=== PATIENT | male | born 1955 | race Caucasian/White ===

== ENCOUNTER 2017-05-14 12:41 | Emergency (ER) | payer OTHER ==
[2017-05-14 13:20] LABS: BASOPHILS % (AUTO) 0.3 %; EOSINOPHILS # (AUTO) 0.1 10^3/uL (0.0-0.7); EOSINOPHILS % (AUTO) 0.6 %; HCT - HEMATOCRIT 44.9 % (42.0-52.0); HGB - HEMOGLOBIN 15.2 g/dL (14.0-18.0); LYMPHOCYTES # (AUTO) 2.1 10^3/uL (1.5-3.5); MEAN CORPUSCULAR HEMOGLOBIN 30.1 pg (27.0-31.0); MEAN CORPUSCULAR HGB CONC 33.8 g/dL (32.0-36.0); MEAN PLATELET VOLUME 8.2 fL (7.4-11.4); MONOCYTES # (AUTO) 0.7 10^3/uL (0.0-1.0); MONOCYTES % (AUTO) 5.9 %; NEUTROPHILS # (AUTO) 9.6 10^3/uL (1.5-6.6); NEUTROPHILS % (AUTO) 76.2 %; RED BLOOD COUNT 5.04 10^6/uL (4.70-6.10); RED CELL DISTRIBUTION WIDTH 13.3 % (12.0-15.0); UNCORRECTED WHITE BLOOD COUNT 12.5 x10^3/uL; WHITE BLOOD COUNT 12.5 x10^3/uL (4.8-10.8)
[2017-05-14 13:29] LABS: ALBUMIN/GLOBULIN RATIO 1.6 (1.0-2.2); BILIRUBIN,TOTAL 2.1 mg/dL (0.2-1.0); CALCIUM 9.9 mg/dL (8.5-10.3); CREATININE 1.2 mg/dL (0.6-1.2); TOTAL PROTEIN 7.2 g/dL (6.7-8.2)
--- NOTE | 2017-05-14 13:40 | XRAY Preliminary Report ---
Exam: XR Chest 2 View PA/LAT IMPRESSION: Suspect chronic lung disease. [facility] SITE ID: [id number]
--- NOTE | 2017-05-14 13:45 | ED Physician Documentation ---
PD HPI CHEST PAIN - Stated complaint Stated Complaint: CHEST PAIN,CARRERA,NAUSEA - Chief complaint Chief Complaint: Cardiac - History obtained from History obtained from: Patient, Family - History of Present Illness Timing - onset: Enter time (1500), Yesterday Timing - onset during: Exertion Timing - duration: Hours (2) Timing - details: Gradual onset, Now resolved, Waxing and waning Quality: Pressure Location: Substernal Radiation: Neck Improved by: Rest Associated symptoms: Nausea. No: Shortness of air, Diaphoresis, Vomiting, Feeling faint / dizzy, General Weakness, Palpitations, Cough Similar symptoms before: Has not had sx before Recently seen: Not recently seen - Additional information Additional information: 61-year-old male with a history of reflux, previous hypercholesterolemia and a positive family history of coronary disease is a non-smoker and yesterday while he was using his weed [place] in his yard he developed some subtle substernal chest pain that radiated into his neck. He felt a little bit nauseous with this he did not develop diaphoresis or dizziness he did not develop dyspnea. The pain lasted approximately 2 hours in bouts of about 15 minutes. He relates that he felt the pain was something he had never experienced before and he became somewhat concerned. He had return of some of this pain today and is come to the emergency department he is pain-free now. He has not noted any exertional component to symptoms. Review of Systems Constitutional: denies: Fever, Chills, Myalgias, Fatigue, Sweats Eyes: denies: Decreased vision Ears: denies: Ear pain Nose: denies: Rhinorrhea / runny nose, Congestion Throat: reports: Sore throat Cardiac: reports: Chest pain / pressure. denies: Palpitations, Pedal edema, Calf pain Respiratory: denies: Dyspnea, Cough, Wheezing GI: reports: Nausea. denies: Abdominal Pain, Vomiting : denies: Dysuria, Frequency Skin: denies: Rash Musculoskeletal: reports: Neck pain. denies: Back pain, Extremity pain, Extremity swelling PD PAST MEDICAL HISTORY - Past Medical History Past Medical History: Yes Cardiovascular: None Respiratory: None Neuro: None Endocrine/Autoimmune: None GI: GERD : None HEENT: None Psych: None Musculoskeletal: None Derm: None - Past Surgical History Past Surgical History: No - Present Medications Home Medications: Ambulatory Orders Medication Instructions Recorded Confirmed Pantoprazole Sodium [Protonix] 20 mg PO DAILY 05/14/17 05/14/17 - Allergies Allergies/Adverse Reactions: Allergies Allergy/AdvReac Type Severity Reaction Status Date / Time No Known Drug Allergies Allergy Verified 05/14/17 12:47 - Social History Does the pt smoke?: No Smoking Status: Never smoker Does the pt drink ETOH?: Yes Does the pt have substance abuse?: No - Immunizations Immunizations are current?: No Immunizations: TDAP >10years/unknown - POLST Patient has POLST: No PD ED PE NORMAL - Vitals Vital signs reviewed: Yes (Normal) - General General: Alert and oriented X 3, No acute distress, Well developed/nourished - HEENT HEENT: Atraumatic, PERRL, EOMI, Moist mucous membranes, Other (Mild inflammation to both TMs along the umbo only) - Neck Neck: Supple, no meningeal sign, No bony TTP - Cardiac Cardiac: RRR, No murmur - Respiratory Respiratory: No respiratory distress, Clear bilaterally, Other (No pain to palpation of the chest wall anterior.) - Abdomen Abdomen: Soft, Non tender - Back Back: No CVA TTP, No spinal TTP - Derm Derm: Normal color, Warm and dry, No rash - Extremities Extremities: No deformity, No edema - Neuro Neuro: Alert and oriented X 3, primary grade teacher 2-12 intact, No motor deficit, No sensory deficit, Normal speech - Psych Psych: Normal mood, Normal affect Results - Vitals Vitals: Vital Signs - 24 hr 05/14/17 05/14/17 05/14/17 12:44 13:37 13:51 Temperature 36.7 C Heart Rate 68 87 Respiratory 16 17 Rate Blood Pressure 124/62 117/71 O2 Saturation 99 97 Oxygen O2 Source Room air - EKG (time done) 1245 Rate: Rate (enter#) (77) Rhythm: NSR Ischemia: ST depression (anterior and lateral ), Q waves (inferior) Compare to prior EKG: Old EKG unavailable Computer interpretation: Agree with computer - Labs Labs: Laboratory Tests 05/14/17 05/14/17 05/14/17 12:55 12:55 12:55 WBC 12.5 H RBC 5.04 Hgb 15.2 Hct 44.9 MCV 89.0 MCH 30.1 MCHC 33.8 RDW 13.3 Plt Count 226 MPV 8.2 Neut # 9.6 H Lymph # 2.1 [place] # 0.7 Eos # 0.1 Baso # 0.0 Absolute Nucleated RBC 0.00 Nucleated RBCs 0.0 Sodium 140 Potassium 4.0 Chloride 105 Carbon Dioxide 28 Anion Gap 7.0 BUN 21 H Creatinine 1.2 Estimated GFR (MDRD) 62 L Glucose 109 H Calcium 9.9 Total Bilirubin 2.1 H AST 90 H ALT 66 H Alkaline Phosphatase 52 Troponin I 4.00 H* Total Protein 7.2 Albumin 4.4 Globulin 2.8 Albumin/Globulin Ratio 1.6 Lipase 22 - Rads (name of study) 2 view chest Radiology: Prelim report reviewed (Impression: Suspect chronic lung disease.), EMP read indepedently, See rad report PD MEDICAL DECISION MAKING - ED course Complexity details: reviewed old records, reviewed results, re-evaluated patient , considered differential, d/w patient, d/w family ED course: 61-year-old male with a history of reflux and no other history in our ED with us , has developed atypical chest pain and electric cardiogram today is suspicious for infarction without ST elevation and today his troponin is elevated at 4.0 he is asymptomatic at the time of evaluation. Here in the emergency department he is administered aspirin and heparin and we will transfer him to [facility]. Dr. Madsen is scrubbed into a case and Dr. Calderon is accepting. Departure - Departure Disposition: 02 Transfer Acute Care Hosp Clinical Impression: Myocardial infarction Qualifiers: Myocardial infarction ST status: non-ST elevation myocardial infarction Qualified Code(s): I21.4 - Non-ST elevation (NSTEMI) myocardial infarction Condition: Stable
[2017-05-14] MEDS ORDERED: HEPARIN 5,000 UNIT/ML VIAL IVP ONE (13:52)
[2017-05-14] MEDS ORDERED: ASPIRIN CHEW 81 MG TABLET PO STA (13:52)
--- NOTE | 2017-05-14 13:53 | XRAY Report ---
EXAM: CHEST RADIOGRAPHY EXAM DATE: 05/14/2017 01:27 PM. CLINICAL HISTORY: Central chest pain since yesterday. COMPARISON: None. TECHNIQUE: 2 views. FINDINGS: Lungs/Pleura: Small amount of smooth pleural thickening left lateral chest wall. Overexpanded lungs. No consolidation, effusion, vascular congestion nor pneumothorax. Mediastinum: Heart and mediastinal contours are unremarkable. Other: None. IMPRESSION: Suspect chronic lung disease. [facility] Referring Provider Line: [phone] SITE ID: [id number]
[2017-05-14] MEDS ORDERED: ASPIRIN CHEW 81 MG TABLET ONE (13:56)
[2017-05-14] MEDS ORDERED: HEPARIN 5,000 UNIT/ML VIAL ONE (14:00)
[2017-05-14] MEDS ORDERED: SODIUM CHLORIDE FLUSH 0.9% 10 ML SYRINGE IVP ONE (14:04)
[2017-05-14] MEDS ORDERED: HEPARIN 25,000 UNITS/500 ML 500 ML IV STA (14:27)
[2017-05-14] MEDS ORDERED: HEPARIN 25,000 UNITS/500 ML 500 ML IV ONE (14:32)
[2017-05-14 15:55] VITALS: BP 119/79
== END 2017-05-14 17:08 | disposition short-term general hospital (02) ==
LOC: ED 12:41
DX: I21.4 Non-ST elevation (NSTEMI) myocardial infarction (principal); R94.31 Abnormal electrocardiogram [ECG] [EKG]; K21.9 Gastro-esophageal reflux disease without esophagitis; Z82.49 Family history of ischemic heart disease and other diseases of the circulatory system
CPT/HCPCS: 36415; 71020; 80053; 83690; 84484; 85025; 93005; 96374; 99284; 99285; A9270

== ENCOUNTER 2017-05-14 17:04 | Outpatient (CLI) | payer OTHER | END 2017-05-14 17:05 | disposition short-term general hospital (02) | LOC: EMS 17:04 | PROVIDERS: ATTEND Surgery | DX: I21.4 Non-ST elevation (NSTEMI) myocardial infarction (principal) | CPT/HCPCS: A0425; A0426 ==

== ENCOUNTER 2017-05-30 08:38 | Outpatient (CLI) | payer OTHER ==
[2017-05-30 09:52] LABS: CHOLESTEROL 111 mg/dL; HDL CHOLESTEROL 37 mg/dL; LDL/HDL RATIO 1.5 (<3.6); TRIGLYCERIDES 83 mg/dL; VLDL CHOLESTEROL 17 mg/dL
== END 2017-05-30 08:39 | disposition home or self-care (01) ==
LOC: LAB 08:38
DX: I21.4 Non-ST elevation (NSTEMI) myocardial infarction (principal); E80.4 Gilbert syndrome
CPT/HCPCS: 36415; 80061

== ENCOUNTER 2017-09-02 18:33 | Emergency (ER) | payer OTHER ==
[2017-09-02 19:18] LABS: BASOPHILS % (AUTO) 0.6 %; EOSINOPHILS # (AUTO) 0.3 10^3/uL (0.0-0.7); EOSINOPHILS % (AUTO) 3.4 %; HCT - HEMATOCRIT 43.6 % (42.0-52.0); HGB - HEMOGLOBIN 14.5 g/dL (14.0-18.0); LYMPHOCYTES # (AUTO) 1.6 10^3/uL (1.5-3.5); LYMPHOCYTES % (AUTO) 20.3 %; MEAN CORPUSCULAR HEMOGLOBIN 29.6 pg (27.0-31.0); MEAN CORPUSCULAR HGB CONC 33.3 g/dL (32.0-36.0); MEAN CORPUSCULAR VOLUME 88.7 fL (80.0-94.0); MEAN PLATELET VOLUME 7.4 fL (7.4-11.4); MONOCYTES # (AUTO) 0.6 10^3/uL (0.0-1.0); MONOCYTES % (AUTO) 7.3 %; NEUTROPHILS # (AUTO) 5.5 10^3/uL (1.5-6.6); NEUTROPHILS % (AUTO) 68.4 %; RED BLOOD COUNT 4.92 10^6/uL (4.70-6.10); RED CELL DISTRIBUTION WIDTH 13.4 % (12.0-15.0)
[2017-09-02 19:30] LABS: ALBUMIN/GLOBULIN RATIO 1.5 (1.0-2.2); BILIRUBIN,TOTAL 1.9 mg/dL (0.2-1.0); CALCIUM 9.9 mg/dL (8.5-10.3); CREATININE 0.9 mg/dL (0.6-1.2); POTASSIUM 3.9 mmol/L (3.5-5.0)
--- NOTE | 2017-09-02 19:43 | ED Physician Documentation ---
PD HPI CHEST PAIN - Stated complaint Stated Complaint: K LEVEL HIGH - Chief complaint Chief Complaint: General - History obtained from History obtained from: Patient - History of Present Illness Timing - onset: Today (He had regular outpatient labs done through his [facility] yesterday with result today showing elevated potasium of 6.6. The office called him to go to ED to have level rechecked.) Timing - details: Other (he is feeling okay without weakness, cramping, numbness.) Review of Systems GI: denies: Nausea, Vomiting, Diarrhea Neurologic: denies: Focal weakness, Numbness, Near syncope, Altered mental status PD PAST MEDICAL HISTORY - Past Medical History Cardiovascular: None Respiratory: None Neuro: None Endocrine/Autoimmune: None GI: GERD : None HEENT: None Psych: None Musculoskeletal: None Derm: None - Past Surgical History Past Surgical History: No - Present Medications Home Medications: Ambulatory Orders Medication Instructions Recorded Confirmed Pantoprazole Sodium [Protonix] 20 mg PO DAILY 05/14/17 05/14/17 - Allergies Allergies/Adverse Reactions: Allergies Allergy/AdvReac Type Severity Reaction Status Date / Time No Known Drug Allergies Allergy Verified 09/02/17 18:48 - Social History Does the pt smoke?: No Smoking Status: Never smoker Does the pt drink ETOH?: Yes Does the pt have substance abuse?: No - Immunizations Immunizations are current?: No Immunizations: TDAP >10years/unknown - POLST Patient has POLST: No PD ED PE NORMAL - Vitals Vital signs reviewed: Yes - General General: Alert and oriented X 3, No acute distress, Well developed/nourished - Cardiac Cardiac: RRR, No murmur - Neuro Neuro: Alert and oriented X 3, No motor deficit, Normal speech Results - Vitals Vitals: Vital Signs - 24 hr 09/02/17 09/02/17 18:45 20:32 Temperature 36.4 C L 36.7 C Heart Rate 74 79 Respiratory 16 17 Rate Blood Pressure 122/69 143/71 H O2 Saturation 100 99 Oxygen O2 Source Room air - Labs Labs: Laboratory Tests 09/02/17 09/02/17 19:10 19:10 WBC 8.0 RBC 4.92 Hgb 14.5 Hct 43.6 MCV 88.7 MCH 29.6 MCHC 33.3 RDW 13.4 Plt Count 213 MPV 7.4 Neut # 5.5 Lymph # 1.6 [place] # 0.6 Eos # 0.3 Baso # 0.0 Absolute Nucleated RBC 0.00 Nucleated RBC % 0.0 Sodium 140 Potassium 3.9 Chloride 101 Carbon Dioxide 26 Anion Gap 13.0 BUN 21 H Creatinine 0.9 Estimated GFR (MDRD) 86 L Glucose 95 Calcium 9.9 Total Bilirubin 1.9 H AST 37 ALT 44 Alkaline Phosphatase 70 Total Protein 7.0 Albumin 4.2 Globulin 2.8 Albumin/Globulin Ratio 1.5 Lipase 27 PD MEDICAL DECISION MAKING - ED course Complexity details: considered differential (His potassium level is normal here ; presume had hemolyzed sample from outpatient. His renal function is normal too , which reinforces the idea of lab error reading from earlier. ), d/w patient Departure - Departure Disposition: 01 Home, Self Care Clinical Impression: Serum potassium elevated Condition: Stable Record reviewed to determine appropriate education?: Yes Follow-Up: MARCY SANDERS MD [Primary Care Provider] - Comments: Your repeat potassium level and kidney function are normal here. Presume was a false reading from the lab this morning. Continue usual medications and activities. Remain adequately hydrated. Follow-up with your primary care and miner assistant as needed. Call to update the office tomorrow about the repeated blood test. Discharge Date/Time: 09/02/17 20:20
[2017-09-02 20:35] VITALS: BP 143/71
== END 2017-09-02 20:20 | disposition home or self-care (01) ==
LOC: ED 18:33
DX: E87.5 Hyperkalemia (principal); R94.31 Abnormal electrocardiogram [ECG] [EKG]
CPT/HCPCS: 36415; 80053; 83690; 85025; 93005; 99283

== ENCOUNTER 2019-11-18 14:21 | Outpatient (CLI) | payer OTHER | END 2019-11-18 14:22 | disposition home or self-care (01) | LOC: LAB 14:21 | PROVIDERS: ATTEND Family Medicine | DX: E87.5 Hyperkalemia (principal) | CPT/HCPCS: 36415; 84132 ==

== ENCOUNTER 2019-12-21 07:33 | Observation (INO) | payer OTHER ==
[2019-12-21 08:09] LABS: BASOPHILS # (AUTO) 0.1 10^3/uL (0.0-0.1); BASOPHILS % (AUTO) 0.5 %; EOSINOPHILS # (AUTO) 0.1 10^3/uL (0.0-0.7); EOSINOPHILS % (AUTO) 0.9 %; HGB - HEMOGLOBIN 12.2 g/dL (14.0-18.0); LYMPHOCYTES # (AUTO) 1.6 10^3/uL (1.5-3.5); LYMPHOCYTES % (AUTO) 14.4 %; MEAN CORPUSCULAR HEMOGLOBIN 30.7 pg (27.0-31.0); MEAN CORPUSCULAR HGB CONC 33.5 g/dL (32.0-36.0); MEAN CORPUSCULAR VOLUME 91.7 fL (80.0-94.0); MEAN PLATELET VOLUME 9.4 fL (7.4-11.4); MONOCYTES # (AUTO) 0.7 10^3/uL (0.0-1.0); MONOCYTES % (AUTO) 6.3 %; NEUTROPHILS # (AUTO) 8.5 10^3/uL (1.5-6.6); NEUTROPHILS % (AUTO) 77.5 %; PLT - PLATELET COUNT 247 10^3/uL (130-450); RED BLOOD COUNT 3.97 10^6/uL (4.70-6.10); RED CELL DISTRIBUTION WIDTH 12.5 % (12.0-15.0); WHITE BLOOD COUNT 10.9 x10^3/uL (4.8-10.8)
[2019-12-21 08:20] LABS: ALBUMIN/GLOBULIN RATIO 1.7 (1.0-2.2); BILIRUBIN,TOTAL 2.2 mg/dL (0.2-1.0); CALCIUM 8.9 mg/dL (8.5-10.3); CREATININE 1.1 mg/dL (0.6-1.2); TOTAL PROTEIN 6.3 g/dL (6.7-8.2)
--- NOTE | 2019-12-21 08:23 | ED Physician Documentation ---
History of Present Illness - Stated complaint Stated Complaint: LIGHTHEADED - Chief complaint Chief Complaint: Cardiac - History obtained from History obtained from: Patient - History of Present Illness Timing: Yesterday - Additonal information Additional information: 64-year-old male with a history of lipoprotein a and coronary disease has [address] and last night he had to go outside to [place] after a dog and when he picked up the dog and carried him home he was much more fatigued than he would expect. He subsequently was able to go to bed he did not have any pain in his chest he did not have any further shortness of breath and this morning when he awoke he felt dizzy and lightheaded. He also notes that he has had some dark tarry stool. Review of Systems Constitutional: reports: Fatigue. denies: Fever, Chills, Myalgias Eyes: denies: Decreased vision Ears: denies: Ear pain Nose: denies: Rhinorrhea / runny nose, Congestion Throat: denies: Sore throat Cardiac: denies: Chest pain / pressure, Palpitations, Pedal edema, Calf pain Respiratory: reports: Dyspnea. denies: Cough, Wheezing GI: reports: Bloody / black stool. denies: Abdominal Pain, Nausea, Vomiting : denies: Dysuria, Frequency Skin: reports: Rash (To the calves improved with steroid and ketoconazole) Musculoskeletal: denies: Neck pain, Back pain, Extremity pain PD PAST MEDICAL HISTORY - Past Medical History Cardiovascular: None Respiratory: None Endocrine/Autoimmune: None GI: GERD : None HEENT: None Psych: None Musculoskeletal: None Derm: None - Past Surgical History Past Surgical History: No - Present Medications Home Medications: Ambulatory Orders Medication Instructions Recorded Confirmed Aspirin 81 mg PO DAILY 12/21/19 12/21/19 Atorvastatin Calcium 40 mg PO QPM 12/21/19 12/21/19 Clopidogrel Bisulfate [Clopidogrel] 75 mg PO DAILY 12/21/19 12/21/19 Metoprolol Succinate [Toprol Xl] 25 mg PO DAILY 12/21/19 12/21/19 Mupirocin 2% Oint [Bactroban 2% 1 applic TOP BID 12/21/19 12/21/19 Oint] lisinopriL [Lisinopril] 2.5 mg PO DAILY 12/21/19 12/21/19 - Allergies Allergies/Adverse Reactions: Allergies Allergy/AdvReac Type Severity Reaction Status Date / Time No Known Drug Allergies Allergy Verified 12/21/19 07:39 - Social History Does the pt smoke?: No Smoking Status: Never smoker Does the pt drink ETOH?: Yes Does the pt have substance abuse?: No - Immunizations Immunizations are current?: No Immunizations: TDAP >10years/unknown - POLST Patient has POLST: No PD ED PE NORMAL - Vitals Vital signs reviewed: Yes (Normal) - General General: Alert and oriented X 3, No acute distress, Well developed/nourished - HEENT HEENT: Atraumatic, PERRL, EOMI - Neck Neck: Supple, no meningeal sign, No bony TTP - Cardiac Cardiac: RRR, No murmur - Respiratory Respiratory: No respiratory distress, Clear bilaterally - Abdomen Abdomen: Soft, Non tender - Male Male : Other (Normal sphincter tone there are external hemorrhoidal tags there is jet black stool present that is guaiac positive) - Back Back: No CVA TTP, No spinal TTP - Derm Derm: Normal color, Warm and dry, No rash - Extremities Extremities: No deformity, No edema, Other (There is a petechial rash to the distal anterior calf right where the patient's left leg rest when he crosses his legs.) - Neuro Neuro: Alert and oriented X 3, outpatient psychiatrist 2-12 intact, No motor deficit, No sensory deficit, Normal speech Eye Opening: Spontaneous Motor: Obeys Commands Verbal: Oriented GCS Score: 15 - Psych Psych: Normal mood, Normal affect Results - Vitals Vitals: Vital Signs - 24 hr 12/21/19 12/21/19 12/21/19 07:39 08:15 09:26 Temperature 36.6 C Heart Rate 98 97 95 Respiratory 18 16 15 Rate Blood Pressure 100/61 107/71 105/70 O2 Saturation 100 99 100 Oxygen O2 Source Room air - EKG (time done) 0809 Rate: Rate (enter#) (110) Rhythm: Sinus tachycardia Ischemia: Q waves Compare to prior EKG: Unchanged from prior EKG (SPT 09-02-2017 no significant changes) Computer interpretation: Agree with computer - Labs Labs: Laboratory Tests 12/21/19 12/21/19 12/21/19 07:45 07:55 07:55 WBC 10.9 H RBC 3.97 L Hgb 12.2 L Hct 36.4 L MCV 91.7 MCH 30.7 MCHC 33.5 RDW 12.5 Plt Count 247 MPV 9.4 Neut # (Auto) 8.5 H Lymph # (Auto) 1.6 [place] # (Auto) 0.7 Eos # (Auto) 0.1 Baso # (Auto) 0.1 Absolute Nucleated RBC 0.00 Nucleated RBC % 0.0 PT 12.6 INR 1.1 APTT 24.2 L Sodium 139 Potassium 4.3 Chloride 108 Carbon Dioxide 24 Anion Gap 7.0 BUN 46 H Creatinine 1.1 Estimated GFR (MDRD) 68 L Glucose 125 H Calcium 8.9 Total Bilirubin 2.2 H AST 20 ALT 26 Alkaline Phosphatase 50 Troponin I High Sens Total Protein 6.3 L Albumin 4.0 Globulin 2.3 Albumin/Globulin Ratio 1.7 Lipase 28 Stl Occult Blood (IFOB) Blood Type Blood Type Recheck Antibody Screen 12/21/19 12/21/19 12/21/19 07:55 07:55 08:20 WBC RBC Hgb Hct MCV MCH MCHC RDW Plt Count MPV Neut # (Auto) Lymph # (Auto) [place] # (Auto) Eos # (Auto) Baso # (Auto) Absolute Nucleated RBC Nucleated RBC % PT INR APTT Sodium Potassium Chloride Carbon Dioxide Anion Gap BUN Creatinine Estimated GFR (MDRD) Glucose Calcium Total Bilirubin AST ALT Alkaline Phosphatase Troponin I High Sens 7.8 Total Protein Albumin Globulin Albumin/Globulin Ratio Lipase Stl Occult Blood (IFOB) POSITIVE A Blood Type Blood Type Recheck A POSITIVE Antibody Screen 12/21/19 08:27 WBC RBC Hgb Hct MCV MCH MCHC RDW Plt Count MPV Neut # (Auto) Lymph # (Auto) [place] # (Auto) Eos # (Auto) Baso # (Auto) Absolute Nucleated RBC Nucleated RBC % PT INR APTT Sodium Potassium Chloride Carbon Dioxide Anion Gap BUN Creatinine Estimated GFR (MDRD) Glucose Calcium Total Bilirubin AST ALT Alkaline Phosphatase Troponin I High Sens Total Protein Albumin Globulin Albumin/Globulin Ratio Lipase Stl Occult Blood (IFOB) Blood Type A POSITIVE Blood Type Recheck Antibody Screen NEGATIVE - Rads (name of study) chest Radiology: Prelim report reviewed (Impression: Normal single view chest.), EMP read indepedently, See rad report PD MEDICAL DECISION MAKING - ED course Complexity details: reviewed old records, reviewed results, re-evaluated patient, considered differential, d/w patient ED course: 64-year-old male with a history of coronary artery disease, lipoprotein A, felt lightheaded and dizzy since yesterday evening, reminiscent of his symptoms of [place]. He presents to the emergency department today when his symptoms persisted this morning. His electrocardiogram is unchanged from prior, his troponin is negative. His stool is dark black and guiac positive, his BUN is elevated suggesting upper GI source of blood loss. His volume is normal his pressure is normal and his H&H are now off of baseline. I have consulted our surgeon Dr. Meier and she will be available for backup and agrees with admission here. Dr. Gandhi is consulted in the case, immediately answers the phone and graciously agrees to observe the patient in the hospital. He is administered IV protonix in the ED and a second IV line is placed. Departure - Departure Disposition: ED Place in Observation Clinical Impression: GI bleeding Qualifiers: GI bleed type/associated pathology: melena Qualified Code(s): K92.1 - Melena Coronary artery disease Qualifiers: Coronary Disease-Associated Artery/Lesion type: [place] artery [place] vs. transplanted heart: [place] heart Associated angina: with unspecified angina Qualified Code(s): I25.119 - Atherosclerotic heart disease of [place] coronary artery with unspecified angina pectoris Discharge Date/Time: 12/21/19 10:28
--- NOTE | 2019-12-21 08:32 | XRAY Report ---
Reason: Chest Pain Procedure Date: 12/21/2019 Accession Number: [id number] / [id number] Procedure: XR - Chest 1 View X-Ray CPT Code: 42307 Final Report FULL RESULT: EXAM: CHEST RADIOGRAPHY EXAM DATE: 12/21/2019 08:07 AM. CLINICAL HISTORY: Chest Pain. COMPARISON: CHEST 2 VIEW PA/LAT 05/14/2017 1:09 PM. TECHNIQUE: 1 view. FINDINGS: Lungs/Pleura: No focal opacities evident. No pleural effusion. No pneumothorax. Mediastinum: Within exam limitations, the cardiomediastinal contour is normal. Other: None. IMPRESSION: Normal single view chest. [facility]
[2019-12-21] MEDS ORDERED: PANTOPRAZOLE 40 MG VIAL IVP STA (08:55)
[2019-12-21] MEDS ORDERED: SODIUM CHLORIDE FLUSH 0.9% 10 ML SYRINGE IVP PRN (09:31)
[2019-12-21] MEDS ORDERED: ONDANSETRON 4 MG/2 ML VIAL IVP PRN (09:31)
[2019-12-21] MEDS ORDERED: ONDANSETRON ODT 4 MG TABLET TL PRN (09:31)
[2019-12-21] MEDS ORDERED: ACETAMINOPHEN 325 MG TABLET PO PRN (09:31)
[2019-12-21] MEDS ORDERED: MORPHINE 2 MG/ML CARPUJECT IVP PRN (09:31)
[2019-12-21 09:57] LABS: INR 1.1 (0.8-1.2); PT - PROTHROMBIN TIME 12.6 secs (9.9-12.6)
[2019-12-21] MEDS ORDERED: SODIUM CHLORIDE 0.9% 1,000 ML IV SCH (10:00)
[2019-12-21 10:04] LABS: PARTIAL THROMBOPLASTIN TIME 24.2 secs (24.9-33.3)
--- NOTE | 2019-12-21 10:34 | PHARMACY PROGRESS NOTE ---
- Best Possible Medication History Admit Date and Time: 12/21/19 0931 Processed by: Pharmacy Medication History completed: Yes Patient Interview: Completed Secondary Source(s): Insurance records As the person ultimately responsible for medication therapy, providers are able to order a medication from an existing home medication list in [facility] via the "Reconcile Routine" prior to Confirmation of that medication by applications support specialist. Such practice is discouraged except when the physician, in their clinical judgment, deems that a medical need exists for a medication without regard to previous use.
--- NOTE | 2019-12-21 10:57 | HISTORY & PHYSICAL EXAMINATION ---
Chief Complaint - Chief Complaint Chief Complaint: dizziness History of Present Illness - Admitted From Admitted From:: ER - History Obtained From History obtained from: pt - History of Present Illness HPI Comment/Other: This is a 64-year-old male with a history of elevated lipoprotein, and S/P of [address] for CAD 2 and 1/2 yrs ago, and HTN who present ER for complain of dizziness and lightheaded. pt report he felt dizziness and lightheaded on yesterday and today morning. he found he had dark stool on today morning as well. He took baby Aspirin and Plavix for over 2 and 1/2 yrs since he had heart attack. This is his first time to have this kind of feeling. he had EGD about 10 yrs which was unremarkable. He denies alcohol abuse. He denies chest pain, fever, chill, shortness of breath. His CXR is unremarkable. Troponin is unremarkable. Route lab test reveals elevated BUN as well. HGB is 12.2. Occult test is positive. Surgeon was called by ER. pt is admitted for GI bleeding. Discussed with pt about the care goal. pt choose DNR/DNI. he state his has these documentations to state his wishes. History - Past Medical History Cardiovascular: reports: MT Respiratory: reports: None Endocrine/Autoimmune: reports: None GI: reports: GERD : reports: None HEENT: reports: None Psych: reports: None Musculoskeletal: reports: None Derm: reports: None MRSA Hx?: No - Past Surgical History Cardiovascular: reports: Cardiac catheterization - Family & Social History Family History: Mother: , Father: Family History Comment/Other: pt report his father and father's family has strong cardiac family hx. his father from heart attack. his brother and himsef and his son has elevated lipoprotein. Social History Notes: pt denies cigarette smoking, alcohol and drug abuse. he is living at [place] with his . he has three children. he is retired [employer] - POLST Patient has POLST: No Meds/Allgy - Home Medications Home Medications: Ambulatory Orders Medication Instructions Recorded Confirmed Aspirin 81 mg PO DAILY 12/21/19 12/21/19 Atorvastatin Calcium 40 mg PO QPM 12/21/19 12/21/19 Clopidogrel Bisulfate [Clopidogrel] 75 mg PO DAILY 12/21/19 12/21/19 Metoprolol Succinate [Toprol Xl] 25 mg PO DAILY 12/21/19 12/21/19 Mupirocin 2% Oint [Bactroban 2% 1 applic TOP BID 12/21/19 12/21/19 Oint] lisinopriL [Lisinopril] 2.5 mg PO DAILY 12/21/19 12/21/19 - Allergies Allergies/Adverse Reactions: Allergies Allergy/AdvReac Type Severity Reaction Status Date / Time No Known Drug Allergies Allergy Verified 12/21/19 07:39 Review of Systems - Constitutional Constitutional: denies: Fatigue, Fever, Chills, Malaise, Weakness, Poor appetite, Diaphoresis, Night sweats - Eyes Eyes: denies: Pain, Irritation, Amaurosis, Blurred vision, Spots in vision, Field loss, Dipolpia - Ears, Nose & Throat Ears, Nose & Throat: denies: Ear pain, Hearing loss, Hearing aids, Tinnitus, Vertigo, Nasal pain, Nasal discharge, Nosebleeds, Nasal obstruction, Nasal congestion, Postnasal drainage, Dentures, Hoarseness, Mouth lesions - Cardiovascular Cariovascular: reports: Lightheadedness. denies: Irregular heart rate, Palpitations, Chest pain, Edema, Syncope, Exertional dyspnea, Decr. exercise tolerance - Respiratory Respiratory: denies: Cough, Sputum production, Wheezing, Snoring, Hemoptysis, Orthopnea, SOB at rest, SOB with exertion - Gastrointestinal Gastrointestinal: reports: Abdominal pain, Abdominal distention, Diarrhea, Change in bowel habits, Rectal bleeding, Black stools. denies: Bloody stools, Nausea, Vomiting, Bile emesis, Carlos blood emesis, Coffee grounds emesis, Reflux/heartburn - Genitourinary Genitourinary: denies: Dysuria, Frequency, Urgency, Hematuria, Incontinence, Flank pain, Nocturia - Musculoskeletal Musculoskeletal: denies: Muscle pain, Back pain, Muscle aches, Stiffness, Limited range of motion, Muscle weakness, Gout, Joint pain - Integumentary Integumentary: denies: Rash, Pruritis, Lesions, Dryness, Lumps, Acne, Pigment changes, Nail changes - Neurological Neurological: denies: General weakness, Focal weakness, Headache, Dizziness, Numbness, Memory problems, Pre-existing deficit, Abnormal gait, Seizures, Incoordination, Slurred speech - Psychiatric Psychiatric: denies: Depression, Anxiety, Suicidal, Delusions, Hallucinations, Homicidal - Endocrine Endocrine: denies: Polyuria, Polydypsia, Polyphagia, Intolerance to cold - Hematologic/Lymphatic Hematologic/Lymphatic: denies: Anemia, Bruising, Petechiae, Blood clots, Lymphadenopathy, Bleeding tendencies Exam - Vital Signs Vital Signs: Vital Signs x48h Temp Pulse Resp BP Pulse Ox 12/21/19 09:26 95 15 105/70 100 12/21/19 08:15 97 16 107/71 99 12/21/19 07:39 36.6 C 98 18 100/61 100 - Physical Exam General Appearance: positive: No acute distress, Alert. negative: Lethargic Eyes Bilateral: positive: Normal inspection, PERRL, EOMI, No lid inflammation ENT: positive: ENT inspection nml, Pharynx nml, No signs of dehydration. negative: Purulent nasal drainage Neck: positive: Nml inspection, Thyroid nml, No JVD, Trachea midline. negative: Thyromegaly, Lymphadenopathy (R), Lymphadenopathy (L), Stiff neck, Tracheal deviation Respiratory: positive: Chest non-tender, No respiratory distress, Breath sounds nml. negative: Wheezes, Rales, Rhonchi Cardiovascular: positive: Regular rate & rhythm, No murmur, No gallop. negative: Irregularly irregular, Extrasystoles, Tachycardia, Bradycardia, JVD present, Systolic murmur, Diastolic murmur Peripheral Pulses: positive: 2+ Abdomen: positive: Non-tender, No organomegaly, Nml bowel sounds, No distention. negative: Tenderness, Guarding, Rebound Back: positive: Nml inspection. negative: CVA tenderness (R), CVA tenderness (L) Skin: positive: Color nml, No rash, Warm, Dry. negative: Cyanosis, Diaphoresis, Pallor Extremities: positive: Non-tender, Full ROM, Nml appearance. negative: Calf tenderness, Cadence's sign/cords Neurologic/Psychiatric: positive: Oriented x3, Motor nml, Sensation nml, Mood/affect nml. negative: Weakness, Sensory loss, Facial droop, Slurred/abnml speech, Depressed mood/affect Sepsis Event Note (H) - Evaluation Current Stage of Sepsis: Ruled out Conclusion/Plan - Problem List (1) GI bleeding Conclusion/Plan: pt present dizziness and lightheaded, black stool, occult stool test is positive, and BUN increased. pt took Aspirin and Plavix in the home consult with surgeon, will followup NPO with IVF now Protonic IV bid hold Aspirin and Plavix now. we likely will hold his aspirin and continue Plavix for his CAD, and prescribe Protonic H&H monitor Qualifiers: GI bleed type/associated pathology: melena Qualified Code(s): K92.1 - Melena (2) Hx of coronary artery disease Conclusion/Plan: pt has hx of CAD and stent on 2 and 1/2 yrs ago. today his troponin is negative and pt denies chest pain. EKG is unremarkable. we will hold pt's home Aspirin and Plavix now, surgeon was consulted for pt's EGD tele and vital monitor we is likely hold pt's aspirin and continue Plavix for his CAD when d/c pt (3) HTN (hypertension) Conclusion/Plan: pt's BP is stable now, we will resume pt's home meds (4) HLD (hyperlipidemia) Conclusion/Plan: we continue Lipitor after finish EGD. - Lab Results Fish Bones: 12/21/19 07:55 12/21/19 07:55 Core Measures - Anticipated LOS I expect patient to be DC'd or transferred within 96 hours.: Yes - DVT/VTE - Prophylaxis VTE/DVT Device ordered at admit?: Yes VTE/DVT Prophylaxis med ordered at admit?: Yes
[2019-12-21 11:10] LABS: MUDS CUTOFF CONCENTRATIONS CUTOFF CONC BELOW:
[2019-12-21] MEDS ORDERED: METOPROLOL 5 MG/5 ML VIAL IVP PRN (11:11)
[2019-12-21 11:15] LABS: BILIRUBIN,URINE NEGATIVE (NEGATIVE); GLUCOSE, URINE (UA) NEGATIVE (NEGATIVE); KETONES,URINE (UA) NEGATIVE (NEGATIVE); LEUKOCYTE ESTERASE, URINE NEGATIVE (NEGATIVE); NITRITE,URINE NEGATIVE (NEGATIVE); OCCULT BLOOD,URINE NEGATIVE (NEGATIVE); PH,URINE 5.5 PH (5.0-7.5); PROTEIN,URINE NEGATIVE (NEGATIVE); UROBILINOGEN,URINE 0.2 (NORMAL) E.U./dL (NORMAL)
[2019-12-21 11:23] LABS: CLARITY,URINE CLEAR (CLEAR)
[2019-12-21 11:25] LABS: COCAINE SCREEN URINE NEGATIVE (NEGATIVE); METHAMPHETAMINES SCREEN, URINE NEGATIVE (NEGATIVE); OPIATE SCREEN, URINE NEGATIVE (NEGATIVE)
[2019-12-21 11:26] LABS: AMPHETAMINE SCREEN,URINE NEGATIVE (NEGATIVE); BENZODIAZEPINES SCREEN, URINE NEGATIVE (NEGATIVE); METHADONE SCREEN, URINE NEGATIVE (NEGATIVE); OXYCODONE SCREEN, URINE NEGATIVE (NEGATIVE); PROPOXYPHENE SCREEN, URINE NEGATIVE (NEGATIVE); TRICYCLIC ANTIDEPRESSANT,URINE NEGATIVE (NEGATIVE)
[2019-12-21 11:36] LABS: RBC,URINE 0-5 /HPF (0-5)
[2019-12-21 11:37] LABS: BACTERIA,URINE Rare /HPF (None Seen); SQUAMOUS EPITHELIAL CELL,UR RARE Squamous (<= Few)
--- NOTE | 2019-12-21 16:03 | HISTORY & PHYSICAL EXAMINATION ---
Chief Complaint - Chief Complaint Chief Complaint: lightheadedness and black stools GI Bleed Admit Template - History Obtained From Records Reviewed: RN notes reviewed, Old records reviewed History obtained from: Patient Exam limitations: No limitations - History of Present Illness Severity at the worst: reports: Mild (patient reports he routinely rides his pelaton and has not had any issues or symptoms, but today we was chasing after his dog and felt a lightheadedness, not that he was going to pass out but similar to getting up to fast. He states he never has this feeling, then he had a BM and found it to be black and tarry and after discussing the findings with the family, and taking into consideration his heart history he elected to come into the ER where he was found to have a hb of 10. He was admitted to the hosptialist and I was asked to consult. Patient reports he had a full upper and lower scope just prior to leaving the [facility] for screening and history of long standing GERD with mild dysphagia symptoms. He thinks he was stretched at the t arley, but hasn't had any syumptoms since then. Other than his heart history he has been feeling good and healthy up until this episode. He does report he is on plavix and has had increase use of NSAIDs recently. He also reprots increased stress in that his daughter and son in law have moved in [facility] to beadworker (along with his working from home) while he takes care of the 2 yo and 4yo grand kids.) Bleeding quality: reports: Black, tarry stool Context-bleeding started w/: reports: Bowel movement Timing: reports: Abrupt onset Associated symptoms: reports: Other (light headedness) PMH/PSH - Past Medical History Cardiovascular: positive: NM Respiratory: positive: None Endocrine/Autoimmune: positive: None GI: positive: GERD, Other (GB syndrome) : positive: None HEENT: positive: None Psych: positive: None Musculoskeletal: positive: None Derm: positive: None MRSA Hx?: No - Past Surgical History Cardiovascular: positive: Cardiac catheterization Social & Family Hx - Living Situation Living Arrangement: At home Living Situation: With spouse/s.o., With family - Social History Does the pt smoke?: No Smoking Status: Never smoker Does the pt drink ETOH?: Yes Does the pt have substance abuse?: No - POLST Patient has POLST: No Meds/Allgy - Home Medications Home Medications: Ambulatory Orders Medication Instructions Recorded Confirmed Aspirin 81 mg PO DAILY 12/21/19 12/21/19 Atorvastatin Calcium 40 mg PO QPM 12/21/19 12/21/19 Clopidogrel Bisulfate [Clopidogrel] 75 mg PO DAILY 12/21/19 12/21/19 Metoprolol Succinate [Toprol Xl] 25 mg PO DAILY 12/21/19 12/21/19 Mupirocin 2% Oint [Bactroban 2% 1 applic TOP BID 12/21/19 12/21/19 Oint] lisinopriL [Lisinopril] 2.5 mg PO DAILY 12/21/19 12/21/19 - Allergies Allergies/Adverse Reactions: Allergies Allergy/AdvReac Type Severity Reaction Status Date / Time No Known Drug Allergies Allergy Verified 12/21/19 07:39 Review of Systems - Constitutional Constitutional: reports: Fatigue (light headed ness). denies: Fever, Chills - Eyes Eyes: denies: Pain - Cardiovascular Cariovascular: reports: Lightheadedness, Other (hx of cardiac stents). denies: Palpitations, Chest pain - Respiratory Respiratory: denies: Cough, Sputum production, Wheezing - Gastrointestinal Gastrointestinal: reports: Change in bowel habits, Black stools, Reflux/heartburn. denies: Abdominal pain, Abdominal distention, Constipation, Nausea, Vomiting, Coffee grounds emesis - All Other Systems All Other Systems: reports: Reviewed and negative Exam - Vital Signs Vital Signs: Vital Signs x48h Temp Pulse Pulse Resp BP BP Pulse Ox 12/21/19 11:04 36.9 C 99 18 115/69 99 12/21/19 09:26 95 15 105/70 100 12/21/19 08:15 97 16 107/71 99 - Physical Exam General Appearance: positive: No acute distress (sitting in bed comfortably, able to converse without issues) Eyes Bilateral: positive: No scleral icterus ENT: positive: ENT inspection nml Neck: positive: Nml inspection Respiratory: positive: Breath sounds nml Cardiovascular: positive: Regular rate & rhythm Abdomen: positive: Non-tender, Nml bowel sounds, No distention. negative: Guarding, Rebound Rectal: positive: Stool - heme POS Skin: positive: Color nml, No rash Extremities: positive: Non-tender, Full ROM, Nml appearance Neurologic/Psychiatric: positive: Oriented x3 Results - Lab Results Fish Bones: 12/21/19 14:42 12/21/19 07:55 Other Lab Results: Lab Results x24hrs 12/21/19 12/21/19 12/21/19 Range/Units 14:42 11:02 08:27 WBC (4.8-10.8) x10^3/uL RBC (4.70-6.10) 10^6/uL Hgb 11.0 L (14.0-18.0) g/dL Hct 32.3 L (42.0-52.0) % MCV (80.0-94.0) fL MCH (27.0-31.0) pg MCHC (32.0-36.0) g/dL RDW (12.0-15.0) % Plt Count (130-450) 10^3/uL MPV (7.4-11.4) fL Neut # (Auto) (1.5-6.6) 10^3/uL Lymph # (Auto) (1.5-3.5) 10^3/uL [place] # (Auto) (0.0-1.0) 10^3/uL Eos # (Auto) (0.0-0.7) 10^3/uL Baso # (Auto) (0.0-0.1) 10^3/uL Absolute Nucleated RBC x10^3/uL Nucleated RBC % /100WBC PT (9.9-12.6) secs INR (0.8-1.2) APTT (24.9-33.3) secs Sodium (135-145) mmol/L Potassium (3.5-5.0) mmol/L Chloride (101-111) mmol/L Carbon Dioxide (21-32) mmol/L Anion Gap (6-13) BUN (6-20) mg/dL Creatinine (0.6-1.2) mg/dL Estimated GFR (MDRD) (>89) Glucose (70-100) mg/dL Calcium (8.5-10.3) mg/dL Total Bilirubin (0.2-1.0) mg/dL AST (10-42) IU/L ALT (10-60) IU/L Alkaline Phosphatase (42-121) IU/L Troponin I High Sens (2.3-19.7) ng/L Total Protein (6.7-8.2) g/dL Albumin (3.2-5.5) g/dL Globulin (2.1-4.2) g/dL Albumin/Globulin Ratio (1.0-2.2) Lipase (22-51) U/L Urine Color YELLOW Urine Clarity CLEAR (CLEAR) Urine pH 5.5 (5.0-7.5) PH Ur Specific [place] 1.020 (1.002-1.030) Urine Protein NEGATIVE (NEGATIVE) mg/dL Urine Glucose (UA) NEGATIVE (NEGATIVE) mg/dL Urine Ketones NEGATIVE (NEGATIVE) mg/dL Urine Occult Blood NEGATIVE (NEGATIVE) Urine Nitrite NEGATIVE (NEGATIVE) Urine Bilirubin NEGATIVE (NEGATIVE) Urine Urobilinogen 0.2 (NORMAL) (NORMAL) E.U./dL Ur Leukocyte Esterase NEGATIVE (NEGATIVE) Urine RBC 0-5 (0-5) /HPF Urine WBC 0-3 (0-3) /HPF Ur Squamous Epith Cells RARE Squamous (<= Few) Urine Bacteria Rare (None Seen) /HPF Urine Culture Comments NOT INDICATED Stl Occult Blood (IFOB) (NEGATIVE) Urine Opiates Screen NEGATIVE (NEGATIVE) Ur Oxycodone Screen NEGATIVE (NEGATIVE) Urine Methadone Screen NEGATIVE (NEGATIVE) Ur Propoxyphene Screen NEGATIVE (NEGATIVE) Ur Barbiturates Screen NEGATIVE (NEGATIVE) Ur Tricyclics Screen NEGATIVE (NEGATIVE) Ur Phencyclidine Scrn NEGATIVE (NEGATIVE) Ur Amphetamine Screen NEGATIVE (NEGATIVE) U Methamphetamines Scrn NEGATIVE (NEGATIVE) U Benzodiazepines Scrn NEGATIVE (NEGATIVE) Urine Cocaine Screen NEGATIVE (NEGATIVE) U Cannabinoids Screen NEGATIVE (NEGATIVE) Blood Type A POSITIVE Blood Type Recheck Antibody Screen NEGATIVE 12/21/19 12/21/19 12/21/19 Range/Units 08:20 07:55 07:55 WBC (4.8-10.8) x10^3/uL RBC (4.70-6.10) 10^6/uL Hgb (14.0-18.0) g/dL Hct (42.0-52.0) % MCV (80.0-94.0) fL MCH (27.0-31.0) pg MCHC (32.0-36.0) g/dL RDW (12.0-15.0) % Plt Count (130-450) 10^3/uL MPV (7.4-11.4) fL Neut # (Auto) (1.5-6.6) 10^3/uL Lymph # (Auto) (1.5-3.5) 10^3/uL [place] # (Auto) (0.0-1.0) 10^3/uL Eos # (Auto) (0.0-0.7) 10^3/uL Baso # (Auto) (0.0-0.1) 10^3/uL Absolute Nucleated RBC x10^3/uL Nucleated RBC % /100WBC PT (9.9-12.6) secs INR (0.8-1.2) APTT (24.9-33.3) secs Sodium (135-145) mmol/L Potassium (3.5-5.0) mmol/L Chloride (101-111) mmol/L Carbon Dioxide (21-32) mmol/L Anion Gap (6-13) BUN (6-20) mg/dL Creatinine (0.6-1.2) mg/dL Estimated GFR (MDRD) (>89) Glucose (70-100) mg/dL Calcium (8.5-10.3) mg/dL Total Bilirubin (0.2-1.0) mg/dL AST (10-42) IU/L ALT (10-60) IU/L Alkaline Phosphatase (42-121) IU/L Troponin I High Sens 7.8 (2.3-19.7) ng/L Total Protein (6.7-8.2) g/dL Albumin (3.2-5.5) g/dL Globulin (2.1-4.2) g/dL Albumin/Globulin Ratio (1.0-2.2) Lipase (22-51) U/L Urine Color Urine Clarity (CLEAR) Urine pH (5.0-7.5) PH Ur Specific [place] (1.002-1.030) Urine Protein (NEGATIVE) mg/dL Urine Glucose (UA) (NEGATIVE) mg/dL Urine Ketones (NEGATIVE) mg/dL Urine Occult Blood (NEGATIVE) Urine Nitrite (NEGATIVE) Urine Bilirubin (NEGATIVE) Urine Urobilinogen (NORMAL) E.U./dL Ur Leukocyte Esterase (NEGATIVE) Urine RBC (0-5) /HPF Urine WBC (0-3) /HPF Ur Squamous Epith Cells (<= Few) Urine Bacteria (None Seen) /HPF Urine Culture Comments Stl Occult Blood (IFOB) POSITIVE A (NEGATIVE) Urine Opiates Screen (NEGATIVE) Ur Oxycodone Screen (NEGATIVE) Urine Methadone Screen (NEGATIVE) Ur Propoxyphene Screen (NEGATIVE) Ur Barbiturates Screen (NEGATIVE) Ur Tricyclics Screen (NEGATIVE) Ur Phencyclidine Scrn (NEGATIVE) Ur Amphetamine Screen (NEGATIVE) U Methamphetamines Scrn (NEGATIVE) U Benzodiazepines Scrn (NEGATIVE) Urine Cocaine Screen (NEGATIVE) U Cannabinoids Screen (NEGATIVE) Blood Type Blood Type Recheck A POSITIVE Antibody Screen 12/21/19 12/21/19 12/21/19 Range/Units 07:55 07:55 07:45 WBC 10.9 H (4.8-10.8) x10^3/uL RBC 3.97 L (4.70-6.10) 10^6/uL Hgb 12.2 L (14.0-18.0) g/dL Hct 36.4 L (42.0-52.0) % MCV 91.7 (80.0-94.0) fL MCH 30.7 (27.0-31.0) pg MCHC 33.5 (32.0-36.0) g/dL RDW 12.5 (12.0-15.0) % Plt Count 247 (130-450) 10^3/uL MPV 9.4 (7.4-11.4) fL Neut # (Auto) 8.5 H (1.5-6.6) 10^3/uL Lymph # (Auto) 1.6 (1.5-3.5) 10^3/uL [place] # (Auto) 0.7 (0.0-1.0) 10^3/uL Eos # (Auto) 0.1 (0.0-0.7) 10^3/uL Baso # (Auto) 0.1 (0.0-0.1) 10^3/uL Absolute Nucleated RBC 0.00 x10^3/uL Nucleated RBC % 0.0 /100WBC PT 12.6 (9.9-12.6) secs INR 1.1 (0.8-1.2) APTT 24.2 L (24.9-33.3) secs Sodium 139 (135-145) mmol/L Potassium 4.3 (3.5-5.0) mmol/L Chloride 108 (101-111) mmol/L Carbon Dioxide 24 (21-32) mmol/L Anion Gap 7.0 (6-13) BUN 46 H (6-20) mg/dL Creatinine 1.1 (0.6-1.2) mg/dL Estimated GFR (MDRD) 68 L (>89) Glucose 125 H (70-100) mg/dL Calcium 8.9 (8.5-10.3) mg/dL Total Bilirubin 2.2 H (0.2-1.0) mg/dL AST 20 (10-42) IU/L ALT 26 (10-60) IU/L Alkaline Phosphatase 50 (42-121) IU/L Troponin I High Sens (2.3-19.7) ng/L Total Protein 6.3 L (6.7-8.2) g/dL Albumin 4.0 (3.2-5.5) g/dL Globulin 2.3 (2.1-4.2) g/dL Albumin/Globulin Ratio 1.7 (1.0-2.2) Lipase 28 (22-51) U/L Urine Color Urine Clarity (CLEAR) Urine pH (5.0-7.5) PH Ur Specific [place] (1.002-1.030) Urine Protein (NEGATIVE) mg/dL Urine Glucose (UA) (NEGATIVE) mg/dL Urine Ketones (NEGATIVE) mg/dL Urine Occult Blood (NEGATIVE) Urine Nitrite (NEGATIVE) Urine Bilirubin (NEGATIVE) Urine Urobilinogen (NORMAL) E.U./dL Ur Leukocyte Esterase (NEGATIVE) Urine RBC (0-5) /HPF Urine WBC (0-3) /HPF Ur Squamous Epith Cells (<= Few) Urine Bacteria (None Seen) /HPF Urine Culture Comments Stl Occult Blood (IFOB) (NEGATIVE) Urine Opiates Screen (NEGATIVE) Ur Oxycodone Screen (NEGATIVE) Urine Methadone Screen (NEGATIVE) Ur Propoxyphene Screen (NEGATIVE) Ur Barbiturates Screen (NEGATIVE) Ur Tricyclics Screen (NEGATIVE) Ur Phencyclidine Scrn (NEGATIVE) Ur Amphetamine Screen (NEGATIVE) U Methamphetamines Scrn (NEGATIVE) U Benzodiazepines Scrn (NEGATIVE) Urine Cocaine Screen (NEGATIVE) U Cannabinoids Screen (NEGATIVE) Blood Type Blood Type Recheck Antibody Screen Sepsis Event Note (H) - Evaluation Current Stage of Sepsis: Ruled out Impression/Plan - Problem List Problem List: 64 yo Wm with most likely upper GI bleed. We discussed his symptoms and lab findings and given the abrupt onset of his symptoms with black stool I agree with in house observation. We discussed the possible eitologies and the work up and treatment for them. He had many excellent questions regarding the development and treatment options and theses were addressed to his satisfaction. We discussed the presumptive dx of upper GI bleed due to PUD/gastritis given his increased stress and NSAID use while on plavix. We discussed the recommended plan of care of observation with serial H&H and remaining NPO overnight and if stable H&H to start a oral intake tomorrow and monitor for an additional 12-24 hours with planned discharge and outpatient followup endoscopy when appropriate in the COVID era. We also discussed that if he fails this plan of care we may need to proceed prior with inpatient endoscopy. He understands this plan and is in agreement with it. This was also discussed with the hospitalist team.
[2019-12-21] MEDS: SODIUM CHLORIDE FLUSH 0.9% 10 ML SYRINGE IVP SCH (19:22)
[2019-12-21 20:15] LABS: HGB - HEMOGLOBIN 10.5 g/dL (14.0-18.0)
[2019-12-21] MEDS: PANTOPRAZOLE 40 MG VIAL IVP SCH (20:43)
[2019-12-21] MEDS: DEXTROSE 5%-0.9% NACL 1,000 ML IV SCH (20:43)
[2019-12-22] MEDS: SODIUM CHLORIDE FLUSH 0.9% 10 ML SYRINGE IVP SCH ×2 (01:43→10:27)
[2019-12-22 02:11] LABS: BASOPHILS % (AUTO) 0.3 %; EOSINOPHILS # (AUTO) 0.2 10^3/uL (0.0-0.7); EOSINOPHILS % (AUTO) 2.3 %; HGB - HEMOGLOBIN 9.4 g/dL (14.0-18.0); LYMPHOCYTES # (AUTO) 2.3 10^3/uL (1.5-3.5); LYMPHOCYTES % (AUTO) 26.3 %; MEAN CORPUSCULAR HEMOGLOBIN 30.1 pg (27.0-31.0); MEAN CORPUSCULAR HGB CONC 33.2 g/dL (32.0-36.0); MEAN CORPUSCULAR VOLUME 90.7 fL (80.0-94.0); MEAN PLATELET VOLUME 9.1 fL (7.4-11.4); MONOCYTES # (AUTO) 0.7 10^3/uL (0.0-1.0); NEUTROPHILS # (AUTO) 5.6 10^3/uL (1.5-6.6); NEUTROPHILS % (AUTO) 62.8 %; PLT - PLATELET COUNT 177 10^3/uL (130-450); RED BLOOD COUNT 3.12 10^6/uL (4.70-6.10); RED CELL DISTRIBUTION WIDTH 12.9 % (12.0-15.0); WHITE BLOOD COUNT 8.9 x10^3/uL (4.8-10.8)
[2019-12-22 05:27] LABS: ALBUMIN 3.2 g/dL (3.2-5.5); ALBUMIN/GLOBULIN RATIO 1.5 (1.0-2.2); BILIRUBIN,TOTAL 1.8 mg/dL (0.2-1.0); CREATININE 0.8 mg/dL (0.6-1.2); TOTAL PROTEIN 5.3 g/dL (6.7-8.2)
[2019-12-22] MEDS: DEXTROSE 5%-0.9% NACL 1,000 ML IV SCH (06:23)
[2019-12-22] MEDS ORDERED: PANTOPRAZOLE 40 MG VIAL IVP SCH (07:00)
[2019-12-22 08:27] LABS: BASOPHILS % (AUTO) 0.5 %; EOSINOPHILS # (AUTO) 0.1 10^3/uL (0.0-0.7); EOSINOPHILS % (AUTO) 1.5 %; HGB - HEMOGLOBIN 10.1 g/dL (14.0-18.0); LYMPHOCYTES # (AUTO) 1.6 10^3/uL (1.5-3.5); LYMPHOCYTES % (AUTO) 21.6 %; MEAN CORPUSCULAR HEMOGLOBIN 29.9 pg (27.0-31.0); MEAN CORPUSCULAR HGB CONC 32.3 g/dL (32.0-36.0); MEAN CORPUSCULAR VOLUME 92.6 fL (80.0-94.0); MEAN PLATELET VOLUME 9.4 fL (7.4-11.4); MONOCYTES # (AUTO) 0.5 10^3/uL (0.0-1.0); MONOCYTES % (AUTO) 7.4 %; NEUTROPHILS % (AUTO) 68.3 %; PLT - PLATELET COUNT 182 10^3/uL (130-450); RED BLOOD COUNT 3.38 10^6/uL (4.70-6.10); RED CELL DISTRIBUTION WIDTH 12.9 % (12.0-15.0); WHITE BLOOD COUNT 7.3 x10^3/uL (4.8-10.8)
--- NOTE | 2019-12-22 10:18 | PROVIDER PROGRESS NOTE ---
Subjective - General Admit Date: 12/21/19 - Other Other Information/Narrative: Pt feels fine but did have a dark BM today consistent with blood. His H&H trended down but seems to have leveled off. No tachycardia, BP on the slightly low side but consistent. Objective - Patient Data Reviewed Vital Signs: Yes Vital Signs: Vital Signs x48h Temp Pulse Resp BP Pulse Ox 12/22/19 08:05 36.5 C 70 18 108/58 L 99 12/22/19 04:30 36.6 C 65 16 108/54 L 100 Weight: Weight 12/20/19 12/21/19 12/22/19 23:59 23:59 23:59 Weight (kg) 90.5 kg Intake & Output: Intake and Output Totals x24h 12/20/19 12/21/19 12/22/19 23:59 23:59 23:59 Intake Total 1000 966.667 Output Total 250 Balance 750 966.667 - Lab Results Lab Results: 12/22/19 08:15 12/22/19 04:35 Other Lab Results: Lab Results x24hrs 12/22/19 12/22/19 12/22/19 Range/Units 08:15 04:35 02:00 WBC 7.3 8.9 (4.8-10.8) x10^3/uL RBC 3.38 L 3.12 L (4.70-6.10) 10^6/uL Hgb 10.1 L 9.4 L (14.0-18.0) g/dL Hct 31.3 L 28.3 L (42.0-52.0) % MCV 92.6 90.7 (80.0-94.0) fL MCH 29.9 30.1 (27.0-31.0) pg MCHC 32.3 33.2 (32.0-36.0) g/dL RDW 12.9 12.9 (12.0-15.0) % Plt Count 182 177 (130-450) 10^3/uL MPV 9.4 9.1 (7.4-11.4) fL Neut # (Auto) 5.0 5.6 (1.5-6.6) 10^3/uL Lymph # (Auto) 1.6 2.3 (1.5-3.5) 10^3/uL [place] # (Auto) 0.5 0.7 (0.0-1.0) 10^3/uL Eos # (Auto) 0.1 0.2 (0.0-0.7) 10^3/uL Baso # (Auto) 0.0 0.0 (0.0-0.1) 10^3/uL Absolute Nucleated RBC 0.00 0.00 x10^3/uL Nucleated RBC % 0.0 0.0 /100WBC Sodium 135 (135-145) mmol/L Potassium 3.6 (3.5-5.0) mmol/L Chloride 108 (101-111) mmol/L Carbon Dioxide 23 (21-32) mmol/L Anion Gap 4.0 L (6-13) BUN 32 H (6-20) mg/dL Creatinine 0.8 (0.6-1.2) mg/dL Estimated GFR (MDRD) 98 (>89) Glucose 116 H (70-100) mg/dL Calcium 8.0 L (8.5-10.3) mg/dL Total Bilirubin 1.8 H (0.2-1.0) mg/dL AST 28 (10-42) IU/L ALT 29 (10-60) IU/L Alkaline Phosphatase 38 L (42-121) IU/L Total Protein 5.3 L (6.7-8.2) g/dL Albumin 3.2 (3.2-5.5) g/dL Globulin 2.1 (2.1-4.2) g/dL Albumin/Globulin Ratio 1.5 (1.0-2.2) Urine Color Urine Clarity (CLEAR) Urine pH (5.0-7.5) PH Ur Specific [place] (1.002-1.030) Urine Protein (NEGATIVE) mg/dL Urine Glucose (UA) (NEGATIVE) mg/dL Urine Ketones (NEGATIVE) mg/dL Urine Occult Blood (NEGATIVE) Urine Nitrite (NEGATIVE) Urine Bilirubin (NEGATIVE) Urine Urobilinogen (NORMAL) E.U./dL Ur Leukocyte Esterase (NEGATIVE) Urine RBC (0-5) /HPF Urine WBC (0-3) /HPF Ur Squamous Epith Cells (<= Few) Urine Bacteria (None Seen) /HPF Urine Culture Comments Urine Opiates Screen (NEGATIVE) Ur Oxycodone Screen (NEGATIVE) Urine Methadone Screen (NEGATIVE) Ur Propoxyphene Screen (NEGATIVE) Ur Barbiturates Screen (NEGATIVE) Ur Tricyclics Screen (NEGATIVE) Ur Phencyclidine Scrn (NEGATIVE) Ur Amphetamine Screen (NEGATIVE) U Methamphetamines Scrn (NEGATIVE) U Benzodiazepines Scrn (NEGATIVE) Urine Cocaine Screen (NEGATIVE) U Cannabinoids Screen (NEGATIVE) 12/21/19 12/21/19 12/21/19 Range/Units 20:01 14:42 11:02 WBC (4.8-10.8) x10^3/uL RBC (4.70-6.10) 10^6/uL Hgb 10.5 L 11.0 L (14.0-18.0) g/dL Hct 32.0 L 32.3 L (42.0-52.0) % MCV (80.0-94.0) fL MCH (27.0-31.0) pg MCHC (32.0-36.0) g/dL RDW (12.0-15.0) % Plt Count (130-450) 10^3/uL MPV (7.4-11.4) fL Neut # (Auto) (1.5-6.6) 10^3/uL Lymph # (Auto) (1.5-3.5) 10^3/uL [place] # (Auto) (0.0-1.0) 10^3/uL Eos # (Auto) (0.0-0.7) 10^3/uL Baso # (Auto) (0.0-0.1) 10^3/uL Absolute Nucleated RBC x10^3/uL Nucleated RBC % /100WBC Sodium (135-145) mmol/L Potassium (3.5-5.0) mmol/L Chloride (101-111) mmol/L Carbon Dioxide (21-32) mmol/L Anion Gap (6-13) BUN (6-20) mg/dL Creatinine (0.6-1.2) mg/dL Estimated GFR (MDRD) (>89) Glucose (70-100) mg/dL Calcium (8.5-10.3) mg/dL Total Bilirubin (0.2-1.0) mg/dL AST (10-42) IU/L ALT (10-60) IU/L Alkaline Phosphatase (42-121) IU/L Total Protein (6.7-8.2) g/dL Albumin (3.2-5.5) g/dL Globulin (2.1-4.2) g/dL Albumin/Globulin Ratio (1.0-2.2) Urine Color YELLOW Urine Clarity CLEAR (CLEAR) Urine pH 5.5 (5.0-7.5) PH Ur Specific [place] 1.020 (1.002-1.030) Urine Protein NEGATIVE (NEGATIVE) mg/dL Urine Glucose (UA) NEGATIVE (NEGATIVE) mg/dL Urine Ketones NEGATIVE (NEGATIVE) mg/dL Urine Occult Blood NEGATIVE (NEGATIVE) Urine Nitrite NEGATIVE (NEGATIVE) Urine Bilirubin NEGATIVE (NEGATIVE) Urine Urobilinogen 0.2 (NORMAL) (NORMAL) E.U./dL Ur Leukocyte Esterase NEGATIVE (NEGATIVE) Urine RBC 0-5 (0-5) /HPF Urine WBC 0-3 (0-3) /HPF Ur Squamous Epith Cells RARE Squamous (<= Few) Urine Bacteria Rare (None Seen) /HPF Urine Culture Comments NOT INDICATED Urine Opiates Screen NEGATIVE (NEGATIVE) Ur Oxycodone Screen NEGATIVE (NEGATIVE) Urine Methadone Screen NEGATIVE (NEGATIVE) Ur Propoxyphene Screen NEGATIVE (NEGATIVE) Ur Barbiturates Screen NEGATIVE (NEGATIVE) Ur Tricyclics Screen NEGATIVE (NEGATIVE) Ur Phencyclidine Scrn NEGATIVE (NEGATIVE) Ur Amphetamine Screen NEGATIVE (NEGATIVE) U Methamphetamines Scrn NEGATIVE (NEGATIVE) U Benzodiazepines Scrn NEGATIVE (NEGATIVE) Urine Cocaine Screen NEGATIVE (NEGATIVE) U Cannabinoids Screen NEGATIVE (NEGATIVE) - Current Medications Current Medications: Current Medications Generic Name Dose Route Start Last Admin Trade Name Freq PRN Reason Stop Dose Admin Dextrose/Sodium Chloride 1,000 mls @ 100 mls/hr 12/21/19 19:00 12/22/19 06:23 D5ns IV 100 mls/hr .Q10H MARISELA Administration Pantoprazole Sodium 40 mg 12/21/19 21:00 12/21/19 20:43 Protonix IVP 40 mg BID MARISELA Administration Sodium Chloride 10 ml 12/21/19 17:00 12/22/19 01:43 Normal Saline Flush 0.9% IVP Not Given 0100,0900,1700 MARISELA - Physical Exam Comments/Other: AAO, NAD, overweight male EOMI, MMM unlabored RA soft, nt/nd MAEW Impression/Plan - Problem List Problem List: 64yo M with new UGIB - in setting of high stress and NSAID use - H/H was down trending but levelling off on last check, no tachycardia, did have a dark BM today --> we will loosely plan on diagnostic and possibly therapeutic EGD later today but continue to check Hg and if stabilizes and no further gross blood loss we will hold off given concern for COVID transmission - cont' PPI, discussed with pt that he will go home on pill form of this medication - all current questions answered; pt is eager for discharge plan
[2019-12-22] MEDS: PANTOPRAZOLE 40 MG VIAL IVP SCH (10:27)
[2019-12-22 14:39] LABS: BASOPHILS % (AUTO) 0.5 %; EOSINOPHILS # (AUTO) 0.1 10^3/uL (0.0-0.7); EOSINOPHILS % (AUTO) 1.5 %; HGB - HEMOGLOBIN 10.5 g/dL (14.0-18.0); LYMPHOCYTES # (AUTO) 1.8 10^3/uL (1.5-3.5); MEAN CORPUSCULAR HEMOGLOBIN 30.9 pg (27.0-31.0); MEAN CORPUSCULAR HGB CONC 33.4 g/dL (32.0-36.0); MEAN CORPUSCULAR VOLUME 92.4 fL (80.0-94.0); MEAN PLATELET VOLUME 9.5 fL (7.4-11.4); MONOCYTES # (AUTO) 0.5 10^3/uL (0.0-1.0); MONOCYTES % (AUTO) 6.6 %; NEUTROPHILS # (AUTO) 5.4 10^3/uL (1.5-6.6); NEUTROPHILS % (AUTO) 67.9 %; PLT - PLATELET COUNT 209 10^3/uL (130-450); RED CELL DISTRIBUTION WIDTH 12.8 % (12.0-15.0)
--- NOTE | 2019-12-22 15:10 | Discharge Plan ---
Discharge Plan Problem Reviewed?: Yes Disposition: Home, Self Care Condition: Stable Prescriptions: Omeprazole 40 mg PO DAILY #15 capsule. Diet: Cardiac Activity Restrictions: Activity as Tolerated Shower Restrictions: No (fall precaution) Instruction Topics: Omeprazole tablets OTC, Bleeding Gastrointestinal Health Concerns: GI bleeding Plan of Treatment: Your HGB is stable and slightly increased. GI surgeon advise to hold EGD now. you are prescribe PPI, and your aspirin is hold. Care Goals: stabilization and improvement of your medical condition. Assessment: discussed the care plan with you, you understood Additional Instructions or Follow Up instructions: You may followup your PCP in one week, followup health safety manager to have EGD/colonoscope as out-pt, followup your residential care facility manager as your schedule. Should your symptoms return or worsen, you may present ER or call 911 for help. No Smoking: If you smoke, Please STOP! Call for help. Follow-up with: MARCY SANDERS MD [Primary Care Provider] -
--- NOTE | 2019-12-22 15:48 | DISCHARGE SUMMARY ---
"Discharge Summary Admit Date: 12/21/19 Discharge Date: 12/22/19 Discharging Provider: Jose Tidwell Primary Care Provider: glen Enamorado Condition at Discharge: Stable Discharge Disposition: 01 Home, Self Care Discharge Facility Name: home - DIAGNOSES Admission Diagnoses: (1) GI bleeding (2) Hx of coronary artery disease (3) HTN (hypertension) (4) HLD (hyperlipidemia) Discharge Diagnoses with Status of Each Condition: (1) GI bleeding serial HGB test show pt's HGB continue increased although pt still report he has some black stool in the morning but it could be the previous residence. pt's BUN is decreased as well. pt denies dizziness, shortness of breath. pt's HGB is 10.5 at the d/c surgeon d/c pt at this Covid 19 pandemic situation, and advise pt followup as out-pt pt is prescribed PPI and advise pt hold Aspirin and other NSAIDs advise pt immediately go to ER or call 911 for help if symptoms return or worsen (2) Hx of coronary artery disease stable, followup his seam stayer as out-pt (3) HTN (hypertension) stable (4) HLD (hyperlipidemia) stable - HPI History of Present Illness: This is a 64-year-old male with a history of elevated lipoprotein, and S/P of [address] for CAD 2 and 1/2 yrs ago, and HTN who present ER for complain of dizziness and lightheaded. pt report he felt dizziness and lightheaded on yesterday and today morning. he found he had dark stool on today morning as well. He took baby Aspirin and Plavix for over 2 and 1/2 yrs since he had heart attack. This is his first time to have this kind of feeling. he had EGD about 10 yrs which was unremarkable. He denies alcohol abuse. He denies chest pain, fever, chill, shortness of breath. His CXR is unremarkable. Troponin is unremarkable. Route lab test reveals elevated BUN as well. HGB is 12.2. Occult test is positive. Surgeon was called by ER. pt is admitted for GI bleeding. Discussed with pt about the care goal. pt choose DNR/DNI. he state his has these documentations to state his wishes. - CONSULTS | PROCEDURES Consultations: Dr. Meier and Dr. Joel Procedures: no EGD done - HOSPITAL COURSE Hospital Course: pt was admitted for black stool and GI bleed. pt took aspirin at the home. pt was consulted with GI surgeon Dr. Meier and Dr. Joel. Pt has no EGD done per surgeon. Pt's HGB is stable. Surgeon d/c pt and advise pt followup as out-pt for GI surgeon. pt is prescribed PPI and advise hold Aspirin, and followup his seam stayer as out pt. The detail hospital course is as the following: (1) GI bleeding serial HGB test show pt's HGB continue increased although pt still report he has some black stool in the morning but it could be the previous residence. pt's BUN is decreased as well. pt denies dizziness, shortness of breath. pt's HGB is 10.5 at the d/c surgeon d/c pt at this Covid 19 pandemic situation, and advise pt followup as out-pt pt is prescribed PPI and advise pt hold Aspirin and other NSAIDs advise pt immediately go to ER or call 911 for help if symptoms return or worsen (2) Hx of coronary artery disease stable, followup his seam stayer as out-pt (3) HTN (hypertension) stable (4) HLD (hyperlipidemia) stable - ALLERGIES Allergies/Adverse Reactions: Allergies Allergy/AdvReac Type Severity Reaction Status Date / Time No Known Drug Allergies Allergy Verified 12/21/19 07:39 - MEDICATIONS Home Medications: Ambulatory Orders Medication Instructions Recorded Confirmed Atorvastatin Calcium 40 mg PO QPM 12/21/19 12/21/19 Clopidogrel Bisulfate [Clopidogrel] 75 mg PO DAILY 12/21/19 12/21/19 Metoprolol Succinate [Toprol Xl] 25 mg PO DAILY 12/21/19 12/21/19 Mupirocin 2% Oint [Bactroban 2% 1 applic TOP BID 12/21/19 12/21/19 Oint] lisinopriL [Lisinopril] 2.5 mg PO DAILY 12/21/19 12/21/19 Omeprazole 40 mg PO DAILY #15 capsule. 12/22/19 - PHYSICAL EXAM AT DISCHARGE General Appearance: positive: No acute distress, Alert. negative: Lethargic Eyes Bilateral: positive: Normal inspection, PERRL, No lid inflammation ENT: positive: ENT inspection nml, Pharynx nml, No signs of dehydration. negative: Purulent nasal drainage Neck: positive: Nml inspection, Thyroid nml, No JVD, Trachea midline. negative: Thyromegaly, Lymphadenopathy (R), Lymphadenopathy (L), Stiff neck, Tracheal deviation Respiratory: positive: Chest non-tender, No respiratory distress, Breath sounds nml. negative: Wheezes Cardiovascular: positive: Regular rate & rhythm, No murmur, No gallop. ne gative: Irregularly irregular, Extrasystoles, Tachycardia, Bradycardia, JVD present, Systolic murmur, Diastolic murmur Peripheral Pulses: positive: 2+ Abdomen: positive: Non-tender, No organomegaly, Nml bowel sounds, No distention. negative: Tenderness, Guarding, Rebound Back: positive: Nml inspection. negative: CVA tenderness (R), CVA tenderness (L) Skin: positive: Color nml, No rash, Warm, Dry. negative: Cyanosis, Diaphoresis, Pallor, Skin rash Extremities: positive: Non-tender, Full ROM, Nml appearance. negative: Calf tenderness, Cadence's sign/cords Neurologic/Psychiatric: positive: Oriented x3, Motor nml, Sensation nml. negative: Weakness, Sensory loss, Facial droop, Slurred/abnml speech, Depressed mood/affect - LABS Result Diagrams: 12/22/19 14:30 12/22/19 04:35 - SEPSIS Current Stage of Sepsis: Ruled out - FOLLOW UP Follow Up: You may followup your PCP in one week, followup ceramic design engineer to have EGD/ colonoscope as out-pt, followup your seam stayer as your schedule. Should your symptoms return or worsen, you may present ER or call 911 for help. - TIME SPENT Time Spent in Discharge (Minutes): 30"
[2019-12-22 16:19] VITALS: BP 116/64
== END 2019-12-22 16:35 | disposition home or self-care (01) ==
LOC: ED 07:33 → MS2 09:31
PROVIDERS: ADMIT Specialist; ATTEND Nurse Practitioner Gerontology
DX: K92.2 Gastrointestinal hemorrhage, unspecified (principal); I25.119 Atherosclerotic heart disease of native coronary artery with unspecified angina pectoris; I10 Essential (primary) hypertension; E78.5 Hyperlipidemia, unspecified; I25.2 Old myocardial infarction; Z95.5 Presence of coronary angioplasty implant and graft; Z79.02 Long term (current) use of antithrombotics/antiplatelets; Z79.82 Long term (current) use of aspirin; Z66 Do not resuscitate
CPT/HCPCS: 36415; 71045; 80053; 81001; 82274; 83690; 84484; 85014; 85018; 85025; 85610; 85730; 86850; 86900; 86901; 93005; 96361; 96374; 96376; 99284; 99285; G0378; 80306; 82270; 87086

== ENCOUNTER 2020-04-13 10:29 | Day surgery (SDC) | payer OTHER ==
[2020-04-13] MEDS ORDERED: fentaNYL 250 MCG/5 ML VIAL IVP ONE (10:30)
[2020-04-13] MEDS ORDERED: MIDAZOLAM 2 MG/2 ML VIAL IVP ONE (10:30)
[2020-04-13] MEDS ORDERED: LACTATED RINGERS 1,000 ML IV ONE (10:32)
[2020-04-13] MEDS ORDERED: LIDO GARGLE 30 ML BOTTLE ONE (12:23)
[2020-04-13] MEDS ORDERED: LIDO GARGLE 30 ML BOTTLE PO ONE (12:23)
[2020-04-13] MEDS ORDERED: BENZOCAINE/TETRACAINE/BUTAMBEN 20 GM TOP ONE (12:24)
[2020-04-13 14:06] VITALS: BP 110/70
== END 2020-04-13 10:30 | disposition home or self-care (01) ==
LOC: SDS 10:29
PROVIDERS: ATTEND Surgery
PROC: 0DB98ZX Excision of Duodenum, Via Natural or Artificial Opening Endoscopic, Diagnostic (ICD-10-PCS; 2020-04-13)
PROC: 0DB68ZX Excision of Stomach, Via Natural or Artificial Opening Endoscopic, Diagnostic (ICD-10-PCS; 2020-04-13)
PROC: 0DB38ZX Excision of Lower Esophagus, Via Natural or Artificial Opening Endoscopic, Diagnostic (ICD-10-PCS; 2020-04-13)
PROC: 0DB48ZX Excision of Esophagogastric Junction, Via Natural or Artificial Opening Endoscopic, Diagnostic (ICD-10-PCS; 2020-04-13)
PROC: 0DBK8ZZ Excision of Ascending Colon, Via Natural or Artificial Opening Endoscopic (ICD-10-PCS; principal; 2020-04-13 11:45)
PROC: 0DBL8ZZ Excision of Transverse Colon, Via Natural or Artificial Opening Endoscopic (ICD-10-PCS; 2020-04-13 11:45)
DX: Z12.11 Encounter for screening for malignant neoplasm of colon (principal); D12.3 Benign neoplasm of transverse colon; D12.2 Benign neoplasm of ascending colon; K64.4 Residual hemorrhoidal skin tags; K57.30 Diverticulosis of large intestine without perforation or abscess without bleeding; K44.9 Diaphragmatic hernia without obstruction or gangrene; Z87.19 Personal history of other diseases of the digestive system; I25.2 Old myocardial infarction; Z95.5 Presence of coronary angioplasty implant and graft; G47.30 Sleep apnea, unspecified; I25.10 Atherosclerotic heart disease of native coronary artery without angina pectoris; Z79.82 Long term (current) use of aspirin
CPT/HCPCS: 43239; 45380; A9270; J3010; J7120

== ENCOUNTER 2022-02-01 10:10 | Outpatient (CLI) | payer OTHER ==
[2022-02-01 12:19] LABS: CHOLESTEROL 143 mg/dL; HDL CHOLESTEROL 47 mg/dL; LDL CHOLESTEROL,CALCULATED 83 mg/dL; LDL/HDL RATIO 1.8 (<3.6); TRIGLYCERIDES 65 mg/dL; VLDL CHOLESTEROL 13 mg/dL
== END 2022-02-01 10:11 | disposition home or self-care (01) ==
LOC: LAB.N 10:10
PROVIDERS: ATTEND Internal Medicine
DX: E78.5 Hyperlipidemia, unspecified (principal)
CPT/HCPCS: 36415; 80061; 83721

== ENCOUNTER 2023-11-26 10:30 | Outpatient (CLI) | payer MEDICARE, OTHER ==
[2023-11-26 17:41] LABS: BASOPHILS % (AUTO) 0.4 %; EOSINOPHILS # (AUTO) 0.1 10^3/uL (0.0-0.7); HCT - HEMATOCRIT 47.2 % (42.0-52.0); HGB - HEMOGLOBIN 15.4 g/dL (14.0-18.0); LYMPHOCYTES # (AUTO) 1.5 10^3/uL (1.5-3.5); LYMPHOCYTES % (AUTO) 20.9 %; MEAN CORPUSCULAR HGB CONC 32.6 g/dL (32.0-36.0); MEAN CORPUSCULAR VOLUME 91.8 fL (80.0-94.0); MEAN PLATELET VOLUME 10.1 fL (7.4-11.4); MONOCYTES # (AUTO) 1.2 10^3/uL (0.0-1.0); MONOCYTES % (AUTO) 16.3 %; NEUTROPHILS # (AUTO) 4.3 10^3/uL (1.5-6.6); NEUTROPHILS % (AUTO) 60.3 %; PLT - PLATELET COUNT 181 10^3/uL (130-450); RED BLOOD COUNT 5.14 10^6/uL (4.70-6.10); RED CELL DISTRIBUTION WIDTH 12.8 % (12.0-15.0); WHITE BLOOD COUNT 7.1 x10^3/uL (4.8-10.8)
[2023-11-26 17:57] LABS: ALBUMIN/GLOBULIN RATIO 1.5 (1.0-2.2); ALKALINE PHOSPHATASE 92 IU/L (42-121); ALT ALANINE AMINOTRANSFERASE 53 IU/L (10-60); AST ASPARTATE AMINOTRANSFERASE 41 IU/L (10-42); BILIRUBIN,TOTAL 2.5 mg/dL (0.2-1.0); BUN - BLOOD UREA NITROGEN 11 mg/dL (6-20); CALCIUM 9.2 mg/dL (8.5-10.3); CARBON DIOXIDE - CO2 28 mmol/L (21-32); CHLORIDE 104 mmol/L (101-111); CHOL/HDL RATIO 2.7 (<5.0); CHOLESTEROL 115 mg/dL; CREATININE 1.1 mg/dL (0.6-1.3); GFR - MDRD 67 (>89); GLUCOSE 114 mg/dL (74-104); HDL CHOLESTEROL 42 mg/dL; LDL CHOLESTEROL,CALCULATED 56 mg/dL; LDL/HDL RATIO 1.3 (<3.6); POTASSIUM 4.3 mmol/L (3.5-4.5); SODIUM 137 mmol/L (135-145); TOTAL PROTEIN 6.7 g/dL (6.4-8.9); TRIGLYCERIDES 87 mg/dL (48-352); VLDL CHOLESTEROL 17 mg/dL
== END 2023-11-26 10:45 | disposition home or self-care (01) ==
LOC: LAB.N 10:30
PROVIDERS: ATTEND Physician Assistant Medical
DX: U07.1 COVID-19 (principal)
CPT/HCPCS: 36415; 80053; 80061; 83721; 85025